=== PATIENT | male | born 1965 | race Caucasian/White ===

== ENCOUNTER 2022-05-04 14:30 | Outpatient (CLI) | payer BC, SELFPAY ==
--- NOTE | 2022-05-04 14:42 | CT_ITS ---
WS: [id number] LDCT LUNG CANCER SCREENING TECHNIQUE: Noncontrast CT of the chest with coronal and sagittal reformatted images. CLINICAL INFORMATION: NICOTINE DEPENDENCE, CIGARETTES COMPARISON: None. DLP: 72.31 mGy.cm DIvol: Mean CTDIvol: 1.60 (mGy) All CT scans at [facility] use at least one of these dose optimization techniques: automat ed exposure control; mA and/or kV adjustment per patient size (includes targeted exams where dose is matched to clinical indication); or iterative reconstruction. FINDINGS:Slight hazy atelectasis in the lung bases. No suspicious pulmonary parenchymal normalities. Calcified granuloma LEFT lower lobe. Normal caliber thoracic aorta. Coronary calcification. No mediastinal or hilar lymphadenopathy. No ax illary lymphadenopathy. Adrenal glands are normal. Normal GE junction. Moderate spondylitic changes thoracic spine. Hypertrophic changes anterior thoracic spine. CT/CT lung screening [id number] IMPRESSION: LUNG-RADS: 1-Negative FOLLOW UP: 12 Month: Continue annual screening with LDCT
== END 2022-05-04 14:31 | disposition home or self-care (01) ==
LOC: RAD 14:35
PROVIDERS: PCP Family Medicine; Visit Provider Family Medicine
DX: Z12.2 Encounter for screening for malignant neoplasm of respiratory organs (principal); F17.210 Nicotine dependence, cigarettes, uncomplicated
CPT/HCPCS: 71271

== ENCOUNTER 2023-05-15 09:54 | Outpatient (CLI) | payer BC, SELFPAY ==
--- NOTE | 2023-05-15 10:06 | CT_ITS ---
WS: [id number] LDCT LUNG CANCER SCREENING TECHNIQUE: Noncontrast CT of the chest with coronal and sagittal reformatted images. CLINICAL INFORMATION: HISTORY OF TOBACCO USE, NICOTINE DEPENDENCE CIGARETTES COMPARISON: May 04, 2022 DLP: 86.59 mGy.cm DIvol: Mean CTDIvol: 1.90 (mGy) All CT scans at [facility] use at least one of these dose optimization techniques: automat ed exposure control; mA and/or kV adjustment per patient size (includes targeted exams where dose is matched to clinical indication); or iterative reconstruction. FINDINGS:No suspicious pulmonary parenchymal abnormalities. Slight atelectasis in the lung bases. A f ew tiny calcified granulomas. Normal caliber thoracic aorta. Coronary calcification. Adrenal glands are normal. Normal GE junction. No axillary lymphadenopathy. No mediastinal or hilar lymphadenopathy. Normal GE junction. Mild thora cic curve with hypertrophic changes thoracic spine. CT/CT lung screening [id number] IMPRESSION: LUNG-RADS: 1-Negative FOLLOW UP: 12 Month: Continue annual screening with LDCT
== END 2023-05-15 09:55 | disposition home or self-care (01) ==
PROVIDERS: PCP Family Medicine; Visit Provider Family Medicine
DX: Z12.2 Encounter for screening for malignant neoplasm of respiratory organs (principal); F17.210 Nicotine dependence, cigarettes, uncomplicated
CPT/HCPCS: 71271

== ENCOUNTER 2025-01-31 08:35 | Outpatient (CLI) | payer MEDICAID, SELFPAY ==
[2025-01-31 09:11] LABS: Alanine Aminotransferase 26 U/L (0-41); Albumin Level 4.3 g/dL (3.5-5.2); Alkaline Phosphatase 81 U/L (40-130); Anion Gap 12.2 (5-19); Aspartate Amino Transferase 14 U/L (0-40); Blood Urea Nitrogen 12 mg/dL (8-23); Calcium 9.1 mg/dL (8.5-10.5); Carbon Dioxide 29 mmol/L (22-29); Chloride 101 mmol/L (98-107); Cholesterol 100 mg/dL (0-200); Estmated Average Glucose 171; Globulin 2.1 g/dL (1.3-4.6); Glomerular Filtration Rate 137.4 mL/min (90-130); Glucose 240 mg/dL (65-115); HDL Cholesterol 27 mg/dL (60-100); Hemoglobin A1C 7.6 % (4.0-6.0); LDL Cholesterol Calculated 52 mg/dL (50-129); LDL HDL Ratio 1.93 RATIO (0.00-3.22); Osmolality Calculated 294 mOsm/kg (285-295); Potassium 4.2 mmol/L (3.5-5.1); Sodium 138 mmol/L (136-145); Total Bilirubin 0.5 mg/dL (0.15-1.2); Total Protein 6.4 g/dL (6.6-8.7); Triglycerides 105 mg/dL (0-150)
[2025-01-31 09:14] LABS: Creatinine Urine, Random 91 mg/dL (39-259); Microalbum Creatinine Ratio Ur 33 mg/dL (0-20); Microalbumin Random Urine 3 ug/dL (0-20)
== END 2025-01-31 08:36 | disposition home or self-care (01) ==
LOC: LAB 08:36
PROVIDERS: PCP Family Medicine; Visit Provider Internal Medicine
DX: E78.2 Mixed hyperlipidemia (principal)
CPT/HCPCS: 36415; 80053; 80061; 82044; 83036

== ENCOUNTER 2025-04-15 08:32 | Day surgery (SDC) | payer MEDICAID, SELFPAY ==
[2025-04-15 08:55] VITALS: BP 147/73; PULSE 87; RESP 18; TEMP 36.3; O2SAT 96; BMI 27.3
[2025-04-15] MEDS: sodium chloride 0.9% 1,000 ML 15 ML IV (08:55)
[2025-04-15 08:59] LABS: Glucose Point of Care 206 mg/dL (70-110)
--- NOTE | 2025-04-15 09:01 | ANES.PREANE2 ---
Pre-Anesthetic Assessment Height/Weight: Height 1.73 m Weight 81.647 kg Temp Pulse Resp BP Pulse Ox O2 Del Method 97.4 F L 87 18 147/73 96 Room Air 04/15/25 08:55 04/15/25 08:55 04/15/25 08:55 04/15/25 08:55 04/15/25 08:55 04/15/25 08:55 Preop Diagnosis: screening Operation Date: 04/15/25 09:30 Proposed Procedures p Colonoscopy 40906 G0121 Z12.11(Not Applicable) - Milan Whittaker MD Familial anesthetic complications: none Was Beta Ana taken within 24 hours: N/A Was Clonidine taken within 24 hours: N/A Last intake: Intake Last Liquid Date 04/14/25 Last Liquid Time 22:00 Last Solid Date 04/13/25 Social Tobacco and No alcohol 1 PPD pack(s) per day Exam alert, oriented x 3, clear to auscultation bilaterally and regular rate & rhythm Airway Submandibular: within normal limits Cervical ROM: within normal limits Mallampati: Class II Dentition: false Comments: Comments: false uppers History/ROS No significant history except as noted and No significant complaints Pulmonary None reported CV/HEM Hypertension None reported Hepatic None reported GI None reported Metabolic Diabetes Mellitus and None reported Musc/skel None reported Neuropsych None reported Anesthetic Plan ASA status: 3 Anesthesia: MAC Risk of > 500 ml blood loss (7ml/kg in children): No Medications/Allergies Home Medications ?Medication ?Instructions ?Recorded ?Confirmed ?Last Taken ?Type atorvastatin 20 mg tablet 20 mg PO DAILY 06/21/24 04/11/25 04/12/25 History blood sugar diagnostic (OneTouch #10 ea 06/21/24 03/10/25 Unknown History Ultra Test strips) chlorthalidone 25 mg tablet 25 mg PO DAILY 06/21/24 04/11/25 04/12/25 History lisinopril 40 mg tablet 40 mg PO DAILY 06/21/24 04/11/25 04/12/25 History metformin 500 mg tablet 500 mg PO BID 06/21/24 04/11/25 04/12/25 History metoprolol tartrate 50 mg tablet 50 mg PO BID 06/21/24 04/11/25 04/12/25 History blood-glucose,store cashier,cont #1 ea 02/07/25 03/10/25 Unknown 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) insulin glargine 100 unit/mL (3 18 unit (0.18 mL) SUBCUT DAILY 1 02/11/25 04/11/25 04/12/25 Rx mL) subcutaneous pen (Lantus month #15 mL Solostar U-100 Insulin) blood-glucose sensor (Dexcom G7 #3 ea 02/13/25 03/10/25 Unknown Rx Sensor device) semaglutide 1 mg/dose (4 mg/3 mL) 1 mg SUBCUT .WEEKLY 03/10/25 04/11/25 04/04/25 History subcutaneous pen injector (Ozempic) Allergies Allergy/AdvReac Type Severity Reaction Status Date / Time No Known Allergies Allergy Unverified 04/15/25 08:53 Current Medications Generic Name Dose Route Start Last Admin Trade Name Freq PRN Reason Stop Dose Admin Sodium Chloride 1,000 mls @ 15 mls/hr 04/15/25 08:40 04/15/25 08:55 Sodium Chloride 0.9% IV 04/16/25 08:39 15 mls/hr .Q24H PRN Administration COLONOSCOPY FLUIDS PFSH Anesthesia Social History Smoking and tobacco/nicotine status: current every day tobacco/nicotine user
--- NOTE | 2025-04-15 09:22 | W.PM.OPSFHP ---
Same Day Surgery H&P Indication for Procedure/HPI DATE OF PROCEDURE: April 15, 2025 CHIEF COMPLAINT/INDICATIONFOR SURGICAL PROCEDURE: screening colonoscopy PREOP DIAGNOSIS: screening colonoscopy PLANNED PROCEDURE: Operation Date: 04/15/25 09:30 Proposed Procedures p Colonoscopy 97450 G0121 Z12.11(Not Applicable) - Milan Whittaker MD Medications/Allergies* Home Medications ?Medication ?Instructions ?Recorded ?Confirmed ?Type atorvastatin 20 mg tablet 20 mg PO DAILY 06/21/24 04/11/25 History blood sugar diagnostic (OneTouch #10 ea 06/21/24 03/10/25 History Ultra Test strips) chlorthalidone 25 mg tablet 25 mg PO DAILY 06/21/24 04/11/25 History lisinopril 40 mg tablet 40 mg PO DAILY 06/21/24 04/11/25 History metformin 500 mg tablet 500 mg PO BID 06/21/24 04/11/25 History metoprolol tartrate 50 mg tablet 50 mg PO BID 06/21/24 04/11/25 History semaglutide 1 mg/dose (4 mg/3 mL) 1 mg SUBCUT .WEEKLY 03/10/25 04/11/25 History subcutaneous pen injector (Ozempic) Allergies/Adverse Reactions Allergy/AdvReac Type Severity Reaction Status Date / Time No Known Allergies Allergy Unverified 04/15/25 08:53 Current Medications: Generic Name Dose Route Start Last Admin Trade Name Freq PRN Reason Stop Dose Admin Sodium Chloride 1,000 mls @ 15 mls/hr 04/15/25 08:40 04/15/25 08:55 Sodium Chloride 0.9% IV 04/16/25 08:39 15 mls/hr .Q24H PRN Administration COLONOSCOPY FLUIDS Pertinent History/Comorbid Conditions* Social History Smoking and tobacco/nicotine status: current every day tobacco/nicotine user Pertinent Exam Findings alert, oriented x 3, clear to auscultation bilaterally, regular rate & rhythm and procedure specific exam findings abdomen soft, nt, nd Recommendations Risks and benefits of procedure reviewed Surgery/Procedure today Coding Level of Care Code Acute Code for Chg Fwd
[2025-04-15 09:55] VITALS: BP 110/74; PULSE 72; RESP 18; TEMP 36.2; O2SAT 90
[2025-04-15 10:04] VITALS: BP 123/82; PULSE 61; RESP 18; TEMP 36.2; O2SAT 93
--- NOTE | 2025-04-15 10:20 | ANE.PACU2 ---
Inpatient post-anesthesia follow up: Airway intact: Yes Vital signs: Temperature 97.2 F Pulse Rate 61 Respiratory Rate 18 Blood Pressure 123/82 Pulse Oximetry 93 Oxygen Delivery Me thod Room Air Oxygen Flow Rate Fraction of Inspir ed Oxygen Hydration adequate: Yes Nausea and vomiting: No Pain level: 1 Mental status: Baseline
== END 2025-04-15 10:22 | disposition home or self-care (01) ==
PROVIDERS: PCP Family Medicine; Visit Provider Student in an Organized Health Care Education/Training Program
PROC: 0DJD8ZZ Inspection of Lower Intestinal Tract, Via Natural or Artificial Opening Endoscopic (ICD-10-PCS; CPT 45378; principal; 2025-04-15 09:30)
DX: Z12.11 Encounter for screening for malignant neoplasm of colon (principal); D12.2 Benign neoplasm of ascending colon; I10 Essential (primary) hypertension; E11.9 Type 2 diabetes mellitus without complications; F17.210 Nicotine dependence, cigarettes, uncomplicated; Z79.899 Other long term (current) drug therapy; Z79.4 Long term (current) use of insulin; Z79.84 Long term (current) use of oral hypoglycemic drugs; Z79.85 Long-term (current) use of injectable non-insulin antidiabetic drugs
CPT/HCPCS: 36416; 45380; 45385; 82962; 88305; J2704; J7030

== ENCOUNTER 2025-08-22 09:40 | Outpatient (CLI) | payer MEDICAID, SELFPAY ==
[2025-08-22 11:38] LABS: Alanine Aminotransferase 14 U/L (0-41); Albumin Level 4.4 g/dL (3.5-5.2); Alkaline Phosphatase 63 U/L (40-130); Anion Gap 16.8 (5-19); Aspartate Amino Transferase 10 U/L (0-40); Blood Urea Nitrogen 10 mg/dL (8-23); Calcium 9.2 mg/dL (8.5-10.5); Carbon Dioxide 25 mmol/L (22-29); Chloride 101 mmol/L (98-107); Cholesterol 85 mg/dL (0-200); Globulin 2.5 g/dL (1.3-4.6); Glucose 175 mg/dL (65-115); HDL Cholesterol 24 mg/dL (60-100); Osmolality Calculated 291 mOsm/kg (285-295); Potassium 3.8 mmol/L (3.5-5.1); Sodium 139 mmol/L (136-145); Total Protein 6.9 g/dL (6.6-8.7); Triglycerides 98 mg/dL (0-150)
[2025-08-22 11:57] LABS: Estmated Average Glucose 146; Hemoglobin A1C 6.7 % (4.0-6.0)
== END 2025-08-22 09:41 | disposition home or self-care (01) ==
LOC: LAB 09:43
PROVIDERS: Absent Provider Family Medicine; PCP Nurse Practitioner Family; Visit Provider Internal Medicine
DX: E11.8 Type 2 diabetes mellitus with unspecified complications (principal)
CPT/HCPCS: 36415; 80053; 80061; 83036

== ENCOUNTER 2025-10-21 09:20 | Outpatient (CLI) | payer MEDICAID, SELFPAY ==
[2025-10-21 10:32] LABS: Alanine Aminotransferase 14 U/L (0-41); Albumin Level 4.8 g/dL (3.5-5.2); Alkaline Phosphatase 65 U/L (40-130); Anion Gap 14.9 (5-19); Aspartate Amino Transferase 9 U/L (0-40); Blood Urea Nitrogen 16 mg/dL (8-23); Calcium 9.1 mg/dL (8.5-10.5); Carbon Dioxide 28 mmol/L (22-29); Chloride 99 mmol/L (98-107); Cholesterol 110 mg/dL (0-200); Globulin 2.0 g/dL (1.3-4.6); Glucose 189 mg/dL (65-115); HDL Cholesterol 25 mg/dL (60-100); Osmolality Calculated 292 mOsm/kg (285-295); Potassium 3.9 mmol/L (3.5-5.1); Sodium 138 mmol/L (136-145); Total Protein 6.8 g/dL (6.6-8.7); Triglycerides 174 mg/dL (0-150)
[2025-10-21 10:42] LABS: Estmated Average Glucose 137; Hemoglobin A1C 6.4 % (4.0-6.0)
[2025-10-21 10:57] LABS: Creatinine Urine, Random 46 mg/dL (39-259); Microalbum Creatinine Ratio Ur 22 mg/dL (0-20)
== END 2025-10-21 09:21 | disposition home or self-care (01) ==
LOC: LAB 09:21
PROVIDERS: PCP Nurse Practitioner Family; Visit Provider Internal Medicine
DX: E11.65 Type 2 diabetes mellitus with hyperglycemia (principal)
CPT/HCPCS: 36415; 80053; 80061; 82044; 83036